=== PATIENT | female | born 1980 | race Caucasian/White ===

== ENCOUNTER 2023-11-05 14:26 | Emergency (ER) | payer OTHER ==
[~2023-11-05] VITALS: Ht 170.2 cm; Wt 112.5 kg
[2023-11-05] MEDS: ACETAMINOPHEN 650 MG SUPP.RECT RC ONE (14:35)
[2023-11-05] MEDS ORDERED: ACETAMINOPHEN 325 MG TABLET ONE (14:37)
[2023-11-05] MEDS: IV NORMAL SALINE 500 ML BAG IV ONE (14:41)
[2023-11-05] MEDS ORDERED: METF-440 PO (14:41)
[2023-11-05] MEDS: ACETAMINOPHEN 325 MG TABLET PO ONE (14:55)
[2023-11-05 16:54] VITALS: BP 134/81; O2SAT 97
== END 2023-11-05 16:54 | disposition home or self-care (01) ==
LOC: ER 14:26 → EDBD 14:26 → ER 16:54
DX: S93.492A Sprain of other ligament of left ankle, initial encounter (principal); S00.83XA Contusion of other part of head, initial encounter; S89.82XA Other specified injuries of left lower leg, initial encounter; J45.909 Unspecified asthma, uncomplicated; E11.9 Type 2 diabetes mellitus without complications; Z79.899 Other long term (current) drug therapy; Z60.2 Problems related to living alone; Z88.5 Allergy status to narcotic agent; W01.0XXA Fall on same level from slipping, tripping and stumbling without subsequent striking against object, initial encounter; Y93.89 Activity, other specified; Y92.89 Other specified places as the place of occurrence of the external cause; Y99.8 Other external cause status
CPT/HCPCS: 99284; 96360; 70450; 72040; 73564; 73610; J7040; A4606; A4663